=== PATIENT | female | born 1955 | race Hispanic/Latino ===

== ENCOUNTER 2022-02-02 08:49 | Outpatient (CLI) | payer OTHER | END 2022-02-02 08:50 | disposition home or self-care (01) | LOC: BICCT 08:49 | PROVIDERS: ATTEND Family Medicine | DX: S01.81XA Laceration without foreign body of other part of head, initial encounter (principal); S81.011A Laceration without foreign body, right knee, initial encounter; S50.311A Abrasion of right elbow, initial encounter; G44.319 Acute post-traumatic headache, not intractable | CPT/HCPCS: 70450 ==

== ENCOUNTER 2022-02-09 14:53 | Outpatient (CLI) | payer OTHER | END 2022-02-09 14:54 | disposition home or self-care (01) | LOC: BICCT 14:53 | PROVIDERS: ATTEND Family Medicine | DX: S01.81XA Laceration without foreign body of other part of head, initial encounter (principal); S81.011A Laceration without foreign body, right knee, initial encounter; S50.311A Abrasion of right elbow, initial encounter; G44.319 Acute post-traumatic headache, not intractable | CPT/HCPCS: 70450 ==

== ENCOUNTER 2022-02-17 07:53 | Outpatient (CLI) | payer OTHER | END 2022-02-17 07:54 | disposition home or self-care (01) | LOC: SCSMRI 07:53 | PROVIDERS: ATTEND Family Medicine | DX: S81.011D Laceration without foreign body, right knee, subsequent encounter (principal); S01.81XD Laceration without foreign body of other part of head, subsequent encounter; S50.311D Abrasion of right elbow, subsequent encounter; S70.01XD Contusion of right hip, subsequent encounter; G44.319 Acute post-traumatic headache, not intractable; G93.89 Other specified disorders of brain | CPT/HCPCS: 70553; 82565 ==

== ENCOUNTER 2023-09-02 10:16 | Inpatient (IN) | payer MEDICARE ==
[~2023-09-02 10:16] MED LIST: Iopamidol-370 76% 500 ML MDV (1 ML CHARGE) ONE
[2023-09-02] MEDS ORDERED: Etomidate 40 MG (20 mL) VIAL ONE (10:25)
[2023-09-02] MEDS ORDERED: Rocuronium Bromide 10 MG/ML (10ML VIAL) ONE (10:25)
[2023-09-02] MEDS ORDERED: Propofol 1,000 MG/100 ML VIAL IV ONE (10:33)
[2023-09-02 10:54] LABS: ALT (SGPT) Less than 7 U/L (8-55); AST (SGOT) 14 U/L (5-34); Albumin 3.6 g/dL (3.4-4.8); Alkaline Phosphatase 81 U/L (40-110); Anion Gap 17 mmol/L (10-20); BUN (Urea Nitrogen) 21 mg/dL (9.8-20.1); Bilirubin, Total 0.6 mg/dL (0.2-1.2); Calc. Creatinine Clearance 0 mL/min (70-130); Calcium 8.1 mg/dL (7.8-10.44); Carbon Dioxide 14 mmol/L (23-31); Chloride 109 mmol/L (98-107); Estimated GFR 39; Globulin 3.2 g/dL (2.4-3.5); Glucose 335 mg/dL (80-115); Potassium 4.2 mmol/L (3.5-5.1); Protein, Total 6.8 g/dL (5.8-8.1); Sodium 136 mmol/L (136-145)
[2023-09-02 10:57] LABS: Troponin I 0.021 ng/mL (< 0.028)
[2023-09-02 11:00] LABS: Hematocrit 23.4 % (36.0-47.0); Hemoglobin 6.4 g/dL (12.0-16.0); Mean Corpuscular HGB CONC 27.4 g/dL (32.0-36.0); Mean Corpuscular Volume 80.4 fL (78.0-98.0); Mean Platelet Volume 9.9 fL (7.4-10.4); Platelet Count 584 10x3/uL (130-400); RBC Distribution Width 15.3 % (11.5-14.5); Red Blood Cell (RBC) Count 2.91 mill/uL (4.20-5.40)
[2023-09-02 11:01] LABS: Analyzer IN Cardio ER; Base Excess (BEa) -12.8 mEq/L (-2.0 to +3.0); CO2 Tension 42.2 mmHg (35.0-45.0); Calcium, Ionized (arterial) 1.15 mmol/L (1.12-1.30); Carboxyhemoglobin (COHb) 0.3 gm% (0.0-3.0); Hematocrit-ABG 21 % (36.0-47.0); Hemoglobin (Hb) 7.3 g/dL (12.0-16.0); O2 Tension (PaO2), arterial 100.5 mmHg (> 80.0); Potassium - ABG Lab 3.91 mmol/L (3.70-5.30)
[2023-09-02 11:04] LABS: pH, Arterial 7.164 (7.35-7.45)
[2023-09-02 11:05] LABS: Actual Bicarbonate (HCO3a) 14.8 mEq/L (22-28); Puncture Site RRA
[2023-09-02 11:15] LABS: #Monocytes 0.51 10x3/uL (0.11-0.59); #Neutrophils 5.25 10x3/uL (1.40-6.50); INR-International Normal Ratio 1.2; Macrocytosis MODERATE=16-30 cells (100X) (0-5/hpf); Ovalocytes SLIGHT = 2-5 cells (100X) (0-1/hpf); Platelet Adequacy Comment Appears Increased; Prothrombin Time 14.8 sec (12.0-14.7); Total Cell Count 100
[2023-09-02 11:16] LABS: PTT 43.4 sec (22.9-36.1)
[2023-09-02 11:16] LABS: Critical Call Chem-Lactate NUR.ALP1 @1115
[2023-09-02] MEDS ORDERED: Piperacillin/Tazobactam 3.375 GM VIAL ONE (11:26)
[2023-09-02] MEDS ORDERED: Sodium Chloride 0.9% 100 ML ONE (11:26)
[2023-09-02] MEDS ORDERED: Vancomycin 1 GM/200 ML (FROZEN) BAG ONE (11:54)
[2023-09-02] MEDS ORDERED: Ventilator Sedation Protocol 1 EACH FS SCH ×2 (11:55→12:45)
[2023-09-02 12:04] LABS: Lymphocytes 54 % (21-51); Neutrophil 41 % (42-75)
[2023-09-02 12:05] LABS: Eosinophils 1 % (0-10); Monocytes 4 % (0-10)
[2023-09-02] MEDS ORDERED: Ipratropium/Albuterol 3 ML NEB NEB PRN (12:08)
[2023-09-02 12:22] LABS: Lipase 31 U/L (8-78); Magnesium 2.7 mg/dL (1.6-2.6)
[2023-09-02 12:23] LABS: Bilirubin Negative (Negative); Blood, Urine 2+ (Negative); CAUTI Indications for Culture Fever or rigors; Clarity Turbid (Clear); Glucose, Urine (Dipstick) 100 mg/dL (Negative); Ketone, Urine Negative (Negative); Leukocyte Negative Leu/uL (Negative); Nitrite Negative (Negative); Protein, Urine (Dipstick) 300 mg/dL (Neg-Trace); Urobilinogen Normal mg/dL (Less than 2); pH, Urine 5.5 (5.0-9.0)
[2023-09-02] MEDS ORDERED: Acetaminophen 325 MG (10.15 ML) UDCUP PO PRN (12:23)
[2023-09-02 12:30] LABS: Bacteria/HPF 2+ HPF (None Seen)
[2023-09-02] MEDS ORDERED: Lorazepam 2 MG/ML VIAL SLOW IVP PRN (12:30)
[2023-09-02] MEDS ORDERED: Morphine 2 MG/ML VIAL SLOW IVP PRN (12:30)
[2023-09-02] MEDS ORDERED: Fentanyl BOLUS 250 ML IVPB PRN (12:30)
[2023-09-02] MEDS ORDERED: DISCONTINUE PREVIOUS NARCOTIC PAIN MEDICATIONS AND BENZODIAZEPINES FS SCH (12:30)
[2023-09-02] MEDS ORDERED: LORazepam 2 MG/ML SYR.(CARPUJECT) IVP PRN (12:30)
[2023-09-02] MEDS ORDERED: Propofol BOLUS 1,000 MG/100 ML VIAL IV PRN (12:30)
[2023-09-02 12:31] LABS: Urine Culture Reflex No No
[2023-09-02 12:32] LABS: Influenza A by NAA Not Detected (NotDetected); Influenza B by NAA Not Detected (NotDetected); RSV by NAA Not Detected (NotDetected); SARS-CoV-2 NAA Rapid Test Not Detected (NotDetected)
[2023-09-02] MEDS: Insulin Regular 300 UNITS/3 ML VIAL SC PRN (13:10)
[2023-09-02] MEDS: Fentanyl CADD 100 ML IV SCH (13:21)
[2023-09-02] MEDS: Ipratropium/Albuterol 3 ML NEB NEB SCH (13:25)
[2023-09-02] MEDS ORDERED: Cefepime 2 GM in Sodium Chloride 0.9% 100 ML IVPB SCH (14:00)
[2023-09-02 14:08] LABS: Lactic Acid 2.9 mmol/L (0.5-2.2)
[2023-09-02] MEDS: Furosemide 40 MG (4 mL) VIAL SLOW IVP SCH (14:38)
[2023-09-02] MEDS: Albumin 25% 25 GM (100 mL) BOT IVPB SCH (14:39)
[2023-09-02] MEDS: Vancomycin HCl 750 MG in Sodium Chloride 0.9% 250 ML 250 ML IVPB SCH (15:43)
[2023-09-02] MEDS: FLU VACC QS2023(65UP)/MF59C/PF 60 MCG/0.5 ML SYRINGE IM ONE (20:10)
[2023-09-02] MEDS: Propofol 1,000 MG/100 ML VIAL IV PRN (20:27)
[2023-09-02] MEDS ORDERED: Vancomycin 2 GM in Sodium Chloride 0.9% 500 ML IVPB SCH (21:00)
[2023-09-02] MEDS: Famotidine/PF 20 mg/2ml Vial SLOW IVP SCH (21:33)
[2023-09-02] MEDS: GUAIFENESIN SF SOLN 200 MG/10 ML UDCUP PO SCH (21:33)
[2023-09-02] MEDS: Cefepime 1 GM in Sodium Chloride 0.9% 100 ML IVPB SCH (23:36)
[2023-09-03 05:35] LABS: #Basophils Less than 0.03 10x3/uL (0.0-0.2); #Eosinphils Less than 0.03 10x3/uL (0.0-0.7); %Basophils 0.1 % (0.0-1.0); %Monocytes 4.2 % (0.0-10.0); %Neutrophils 89.9 % (42.0-75.0); Hemoglobin 8.4 g/dL (12.0-16.0); Mean Corpuscular HGB CONC 31.1 g/dL (32.0-36.0); Mean Corpuscular Hemoglobin 23.7 pg (27.0-31.0); Mean Corpuscular Volume 76.1 fL (78.0-98.0); Mean Platelet Volume 10.4 fL (7.4-10.4); Platelet Count 438 10x3/uL (130-400); RBC Distribution Width 15.5 % (11.5-14.5); Red Blood Cell (RBC) Count 3.55 mill/uL (4.20-5.40)
[2023-09-03 05:49] LABS: Vancomycin, Random 23.1 ug/mL (See Comment)
[2023-09-03 05:50] LABS: Lactic Acid 1.8 mmol/L (0.5-2.2)
[2023-09-03 06:03] LABS: ALT (SGPT) 10 U/L (8-55); AST (SGOT) 45 U/L (5-34); Albumin 3.6 g/dL (3.4-4.8); Alkaline Phosphatase 68 U/L (40-110); Anion Gap 16 mmol/L (10-20); BUN (Urea Nitrogen) 22 mg/dL (9.8-20.1); Bilirubin, Total 1.3 mg/dL (0.2-1.2); Calc. Creatinine Clearance 44 mL/min (70-130); Calcium 8.8 mg/dL (7.8-10.44); Carbon Dioxide 14 mmol/L (23-31); Cardiac Risk 2.8 (Less than 4.5); Chloride 111 mmol/L (98-107); Cholesterol 123 mg/dl (< 200 Desired); Estimated GFR 39; Globulin 2.7 g/dL (2.4-3.5); Glucose 164 mg/dL (80-115); HDL Cholesterol 44 mg/dL (>60 Neg Risk); LDL Cholesterol, Calculated 58 mg/dL; Protein, Total 6.3 g/dL (5.8-8.1); Sodium 137 mmol/L (136-145); Triglycerides 107 mg/dL (Less than 150)
[2023-09-03] MEDS: Vancomycin 1 GM in Premix 1 BAG IVPB SCH (06:41)
[2023-09-03 07:03] LABS: Actual Bicarbonate (HCO3a) 16.3 mEq/L (22-28); Base Excess (BEa) -6.2 mEq/L (-2.0 to +3.0); Calcium, Ionized (arterial) 1.13 mmol/L (1.12-1.30); Carboxyhemoglobin (COHb) 0.7 gm% (0.0-3.0); Hematocrit-ABG 25 % (36.0-47.0); Hemoglobin (Hb) 8.6 g/dL (12.0-16.0); O2 Tension (PaO2), arterial 137.9 mmHg (> 80.0); Potassium - ABG Lab 3.88 mmol/L (3.70-5.30); pH, Arterial 7.473 (7.35-7.45)
[2023-09-03 07:12] LABS: CO2 Tension 22.8 mmHg (35.0-45.0)
[2023-09-03 07:13] LABS: Puncture Site RBA
[2023-09-04 05:46] LABS: #Basophils Less than 0.03 10x3/uL (0.0-0.2); #Eosinphils Less than 0.03 10x3/uL (0.0-0.7); %Basophils 0.1 % (0.0-1.0); %Lymphocytes 10.4 % (21.0-51.0); %Monocytes 7.6 % (0.0-10.0); %Neutrophils 81.3 % (42.0-75.0); Hemoglobin 7.9 g/dL (12.0-16.0); Mean Corpuscular HGB CONC 31.6 g/dL (32.0-36.0); Mean Corpuscular Hemoglobin 24.6 pg (27.0-31.0); Mean Corpuscular Volume 77.9 fL (78.0-98.0); Platelet Count 394 10x3/uL (130-400); RBC Distribution Width 15.9 % (11.5-14.5); Red Blood Cell (RBC) Count 3.21 mill/uL (4.20-5.40)
[2023-09-04] MEDS ORDERED: Vancomycin HCl 750 MG in Sodium Chloride 0.9% 250 ML 250 ML IVPB SCH (06:00)
[2023-09-04 06:10] LABS: Phosphorus 4.6 mg/dL (2.3-4.7)
[2023-09-04 06:13] LABS: Anion Gap 16 mmol/L (10-20); BUN (Urea Nitrogen) 28 mg/dL (9.8-20.1); Calc. Creatinine Clearance 37 mL/min (70-130); Carbon Dioxide 18 mmol/L (23-31); Chloride 110 mmol/L (98-107); Estimated GFR 31; Glucose 125 mg/dL (80-115); Magnesium 2.4 mg/dL (1.6-2.6); Potassium 3.6 mmol/L (3.5-5.1); Sodium 140 mmol/L (136-145)
[2023-09-04 14:17] LABS: pH, Arterial 7.385 (7.35-7.45)
[2023-09-04 14:18] LABS: Base Excess (BEa) -7.1 mEq/L (-2.0 to +3.0); O2 Tension (PaO2), arterial 103.7 mmHg (> 80.0)
[2023-09-04 14:19] LABS: Calcium, Ionized (arterial) 1.18 mmol/L (1.12-1.30); Carboxyhemoglobin (COHb) 0.7 gm% (0.0-3.0); Hematocrit-ABG 28 % (36.0-47.0); Hemoglobin (Hb) 9.5 g/dL (12.0-16.0); Potassium - ABG Lab 3.64 mmol/L (3.70-5.30); Puncture Site RBA
[2023-09-04] MEDS: cefTRIAXone\\ROCEPHIN 1 GM in Sodium Chloride 0.9% 100 ML IVPB SCH (15:21)
[2023-09-04] MEDS: hydrALAZINE 20 MG/ML VIAL SLOW IVP PRN (15:22)
[2023-09-04] MEDS: Amlodipine 10 MG TAB PO SCH (17:02)
[2023-09-04] MEDS: hydrALAZINE 25 MG TAB PO SCH ×2 (17:02→21:25)
[2023-09-05] MEDS: Ondansetron PF 4 MG/2 ML Vial IVP PRN (01:42)
[2023-09-05 03:29] LABS: #Basophils Less than 0.03 10x3/uL (0.0-0.2); #Eosinphils Less than 0.03 10x3/uL (0.0-0.7); %Basophils 0.1 % (0.0-1.0); %Eosinophils 0.1 % (0.0-10.0); %Lymphocytes 4.6 % (21.0-51.0); %Neutrophils 86.7 % (42.0-75.0); Hematocrit 27.5 % (36.0-47.0); Hemoglobin 8.5 g/dL (12.0-16.0); Mean Corpuscular HGB CONC 30.9 g/dL (32.0-36.0); Mean Corpuscular Hemoglobin 24.4 pg (27.0-31.0); Mean Platelet Volume 9.8 fL (7.4-10.4); Platelet Count 386 10x3/uL (130-400); RBC Distribution Width 16.2 % (11.5-14.5); Red Blood Cell (RBC) Count 3.48 mill/uL (4.20-5.40)
[2023-09-05 09:52] LABS: Anion Gap 16 mmol/L (10-20); BUN (Urea Nitrogen) 34 mg/dL (9.8-20.1); Calc. Creatinine Clearance 37 mL/min (70-130); Calcium 9.2 mg/dL (7.8-10.44); Carbon Dioxide 19 mmol/L (23-31); Chloride 109 mmol/L (98-107); Estimated GFR 32; Glucose 157 mg/dL (80-115); Sodium 140 mmol/L (136-145)
[2023-09-05] MEDS: Citalopram 20 MG TAB PO SCH (10:30)
[2023-09-05] MEDS: Amlodipine 10 MG TAB PO SCH (10:31)
[2023-09-05 15:11] LABS: Iron 14 ug/dL (50-170); Iron Binding Capacity, Total 348 mcg/dL (265-497)
[2023-09-05] MEDS: Famotidine 20 MG TAB PO SCH (20:45)
[2023-09-06 00:34] LABS: Iron Binding Capacity, Total 248 mcg/dL (265-497)
[2023-09-06 02:35] LABS: Iron 8 ug/dL (50-170)
[2023-09-06 05:18] LABS: #Basophils 0.03 10x3/uL (0.0-0.2); %Basophils 0.2 % (0.0-1.0); %Eosinophils 0.3 % (0.0-10.0); %Lymphocytes 8.6 % (21.0-51.0); %Monocytes 7.5 % (0.0-10.0); Hematocrit 28.8 % (36.0-47.0); Hemoglobin 8.8 g/dL (12.0-16.0); Mean Corpuscular HGB CONC 30.6 g/dL (32.0-36.0); Mean Corpuscular Hemoglobin 23.8 pg (27.0-31.0); Mean Corpuscular Volume 77.8 fL (78.0-98.0); Mean Platelet Volume 10.1 fL (7.4-10.4); Platelet Count 366 10x3/uL (130-400); RBC Distribution Width 16.2 % (11.5-14.5)
[2023-09-06 05:42] LABS: Anion Gap 15 mmol/L (10-20); BUN (Urea Nitrogen) 37 mg/dL (9.8-20.1); Calc. Creatinine Clearance 41 mL/min (70-130); Carbon Dioxide 19 mmol/L (23-31); Chloride 107 mmol/L (98-107); Estimated GFR 36; Glucose 138 mg/dL (80-115); Potassium 3.7 mmol/L (3.5-5.1); Sodium 137 mmol/L (136-145)
[2023-09-06] MEDS ORDERED: Ferrous Sulfate 325 MG TAB PO SCH (08:00)
[2023-09-06] MEDS ORDERED: PROPOFOL 20 ML ONE ×2 (08:01→08:49)
[2023-09-06] MEDS ORDERED: fentaNYL 50 mcg/mL 1 mL Vial ONE (08:01)
[2023-09-06] MEDS ORDERED: Lidocaine 2% PF 5 ML VIAL ONE (08:01)
[2023-09-06] MEDS ORDERED: hydrALAZINE 20 MG/ML VIAL ONE (09:23)
[2023-09-06] MEDS: Furosemide 40 MG TAB PO SCH (10:21)
[2023-09-06] MEDS: GoLYTELY 4,000 ml Bottle PO SCH (20:05)
[2023-09-07 04:19] LABS: #Basophils 0.03 10x3/uL (0.0-0.2); %Basophils 0.2 % (0.0-1.0); %Eosinophils 0.8 % (0.0-10.0); %Lymphocytes 10.5 % (21.0-51.0); %Monocytes 10.7 % (0.0-10.0); %Neutrophils 77.2 % (42.0-75.0); Hematocrit 29.2 % (36.0-47.0); Hemoglobin 9.1 g/dL (12.0-16.0); Mean Corpuscular HGB CONC 31.2 g/dL (32.0-36.0); Mean Corpuscular Hemoglobin 24.2 pg (27.0-31.0); Mean Corpuscular Volume 77.7 fL (78.0-98.0); Platelet Count 371 10x3/uL (130-400); RBC Distribution Width 15.9 % (11.5-14.5); Red Blood Cell (RBC) Count 3.76 mill/uL (4.20-5.40)
[2023-09-07 04:38] LABS: Anion Gap 18 mmol/L (10-20); BUN (Urea Nitrogen) 36 mg/dL (9.8-20.1); Calc. Creatinine Clearance 47 mL/min (70-130); Calcium 9.2 mg/dL (7.8-10.44); Carbon Dioxide 19 mmol/L (23-31); Chloride 105 mmol/L (98-107); Estimated GFR 43; Glucose 100 mg/dL (80-115); Potassium 3.8 mmol/L (3.5-5.1); Sodium 138 mmol/L (136-145)
[2023-09-07] MEDS ORDERED: Midazolam HCl 2 mg/2 ml Vial ONE (08:46)
[2023-09-07] MEDS ORDERED: PROPOFOL 40 ML ONE (08:46)
[2023-09-08] MEDS: NIFEdipine XL 60 MG ER.TAB PO SCH (09:09)
[2023-09-08 11:16] LABS: #Basophils 0.03 10x3/uL (0.0-0.2); %Basophils 0.3 % (0.0-1.0); %Eosinophils 2.2 % (0.0-10.0); %Lymphocytes 13.4 % (21.0-51.0); %Monocytes 11.5 % (0.0-10.0); %Neutrophils 71.8 % (42.0-75.0); Hematocrit 26.2 % (36.0-47.0); Hemoglobin 8.4 g/dL (12.0-16.0); Mean Corpuscular HGB CONC 32.1 g/dL (32.0-36.0); Mean Corpuscular Hemoglobin 24.5 pg (27.0-31.0); Mean Corpuscular Volume 76.4 fL (78.0-98.0); Mean Platelet Volume 9.7 fL (7.4-10.4); Platelet Count 332 10x3/uL (130-400); Red Blood Cell (RBC) Count 3.43 mill/uL (4.20-5.40)
[2023-09-08 11:34] LABS: Anion Gap 13 mmol/L (10-20); BUN (Urea Nitrogen) 24 mg/dL (9.8-20.1); Calc. Creatinine Clearance 60 mL/min (70-130); Calcium 8.6 mg/dL (7.8-10.44); Carbon Dioxide 22 mmol/L (23-31); Chloride 104 mmol/L (98-107); Estimated GFR 62; Glucose 111 mg/dL (80-115); Sodium 136 mmol/L (136-145)
[2023-09-08] MEDS: Potassium Chloride 20 MEQ TAB PO SCH (14:25)
[2023-09-09 06:48] LABS: #Basophils 0.04 10x3/uL (0.0-0.2); %Basophils 0.4 % (0.0-1.0); %Eosinophils 2.3 % (0.0-10.0); %Lymphocytes 14.3 % (21.0-51.0); %Monocytes 10.9 % (0.0-10.0); %Neutrophils 71.6 % (42.0-75.0); Hematocrit 26.7 % (36.0-47.0); Hemoglobin 8.3 g/dL (12.0-16.0); Mean Corpuscular HGB CONC 31.1 g/dL (32.0-36.0); Mean Corpuscular Hemoglobin 24.3 pg (27.0-31.0); Mean Corpuscular Volume 78.1 fL (78.0-98.0); Mean Platelet Volume 10.6 fL (7.4-10.4); Platelet Count 335 10x3/uL (130-400); Red Blood Cell (RBC) Count 3.42 mill/uL (4.20-5.40)
[2023-09-09 08:37] LABS: Anion Gap 13 mmol/L (10-20); BUN (Urea Nitrogen) 25 mg/dL (9.8-20.1); Calc. Creatinine Clearance 45 mL/min (70-130); Calcium 8.7 mg/dL (7.8-10.44); Carbon Dioxide 20 mmol/L (23-31); Chloride 104 mmol/L (98-107); Estimated GFR 45; Glucose 96 mg/dL (80-115); Potassium 3.6 mmol/L (3.5-5.1); Sodium 133 mmol/L (136-145)
[2023-09-09] MEDS: NIFEdipine XL 60 MG ER.TAB PO SCH (08:44)
[2023-09-09 09:32] LABS: Anion Gap 16 mmol/L (10-20); BUN (Urea Nitrogen) 26 mg/dL (9.8-20.1); Calc. Creatinine Clearance 42 mL/min (70-130); Carbon Dioxide 20 mmol/L (23-31); Chloride 103 mmol/L (98-107); Estimated GFR 40; Glucose 99 mg/dL (80-115); Potassium 3.6 mmol/L (3.5-5.1); Sodium 135 mmol/L (136-145)
[2023-09-10 04:13] LABS: #Basophils 0.05 10x3/uL (0.0-0.2); %Basophils 0.6 % (0.0-1.0); %Lymphocytes 14.6 % (21.0-51.0); %Monocytes 11.1 % (0.0-10.0); %Neutrophils 69.9 % (42.0-75.0); Hematocrit 27.1 % (36.0-47.0); Hemoglobin 8.3 g/dL (12.0-16.0); Mean Corpuscular HGB CONC 30.6 g/dL (32.0-36.0); Mean Corpuscular Hemoglobin 23.9 pg (27.0-31.0); Mean Corpuscular Volume 77.9 fL (78.0-98.0); Mean Platelet Volume 10.8 fL (7.4-10.4); Platelet Count 329 10x3/uL (130-400); RBC Distribution Width 16.1 % (11.5-14.5); Red Blood Cell (RBC) Count 3.48 mill/uL (4.20-5.40)
[2023-09-10 04:37] LABS: Anion Gap 15 mmol/L (10-20); BUN (Urea Nitrogen) 25 mg/dL (9.8-20.1); Calc. Creatinine Clearance 43 mL/min (70-130); Calcium 8.8 mg/dL (7.8-10.44); Carbon Dioxide 19 mmol/L (23-31); Chloride 104 mmol/L (98-107); Estimated GFR 42; Glucose 123 mg/dL (80-115); Potassium 3.5 mmol/L (3.5-5.1); Sodium 134 mmol/L (136-145)
[2023-09-10 13:51] VITALS: BMI 30.3
[2023-09-10 16:22] VITALS: BP 139/63; TEMP 99
[2023-09-11] MEDS ORDERED: NIFEdipine XL 90 MG ER.TAB PO SCH (09:00)
== END 2023-09-10 16:33 | disposition home or self-care (01) | DRG 871 ==
LOC: ERS 10:16 → CCU 11:06 → 2NO 09-05 20:18 → MSONC 09-09 16:29
PROVIDERS: ADMIT Family Medicine; ATTEND Emergency Medicine
PROC: 0T9B70Z Drainage of Bladder with Drainage Device, Via Natural or Artificial Opening (ICD-10-PCS; principal; 2023-09-02)
PROC: 02HV33Z Insertion of Infusion Device into Superior Vena Cava, Percutaneous Approach (ICD-10-PCS; 2023-09-02)
PROC: 0DH67UZ Insertion of Feeding Device into Stomach, Via Natural or Artificial Opening (ICD-10-PCS; 2023-09-02)
PROC: 0BH17EZ Insertion of Endotracheal Airway into Trachea, Via Natural or Artificial Opening (ICD-10-PCS; 2023-09-02)
PROC: 30233N1 Transfusion of Nonautologous Red Blood Cells into Peripheral Vein, Percutaneous Approach (ICD-10-PCS; 2023-09-02)
PROC: 4A133R1 Monitoring of Arterial Saturation, Peripheral, Percutaneous Approach (ICD-10-PCS; 2023-09-02)
PROC: 3E04329 Introduction of Other Anti-infective into Central Vein, Percutaneous Approach (ICD-10-PCS; 2023-09-02)
PROC: 30233J1 Transfusion of Nonautologous Serum Albumin into Peripheral Vein, Percutaneous Approach (ICD-10-PCS; 2023-09-02)
PROC: 5A1945Z Respiratory Ventilation, 24-96 Consecutive Hours (ICD-10-PCS; 2023-09-02)
PROC: 0DB68ZX Excision of Stomach, Via Natural or Artificial Opening Endoscopic, Diagnostic (ICD-10-PCS; 2023-09-06)
PROC: 0DJD8ZZ Inspection of Lower Intestinal Tract, Via Natural or Artificial Opening Endoscopic (ICD-10-PCS; 2023-09-07)
DX: A41.9 Sepsis, unspecified organism (principal); G93.41 Metabolic encephalopathy; J18.9 Pneumonia, unspecified organism; J96.01 Acute respiratory failure with hypoxia; I50.33 Acute on chronic diastolic (congestive) heart failure; N17.9 Acute kidney failure, unspecified; I13.0 Hypertensive heart and chronic kidney disease with heart failure and stage 1 through stage 4 chronic kidney disease, or unspecified chronic kidney disease; N39.0 Urinary tract infection, site not specified; R65.20 Severe sepsis without septic shock; E78.00 Pure hypercholesterolemia, unspecified; F41.9 Anxiety disorder, unspecified; F32.A Depression, unspecified; Z79.899 Other long term (current) drug therapy; Z79.4 Long term (current) use of insulin; N18.30 Chronic kidney disease, stage 3 unspecified; E11.22 Type 2 diabetes mellitus with diabetic chronic kidney disease; I27.20 Pulmonary hypertension, unspecified; Z98.49 Cataract extraction status, unspecified eye; D50.9 Iron deficiency anemia, unspecified; D63.1 Anemia in chronic kidney disease; K57.90 Diverticulosis of intestine, part unspecified, without perforation or abscess without bleeding; K64.8 Other hemorrhoids
CPT/HCPCS: 0241U; 31500; 36415; 36416; 36430; 36556; 36600; 43753; 51702; 70450; 71045; 71275; 74174; 80048; 80053; 80061; 80202; 81001; 82728; 82805; 83036; 83540; 83550; 83605; 83690; 83735; 83880; 84100; 84145; 84443; 84484; 85025; 85610; 85730; 86850; 86900; 86901; 87040; 87077; 87081; 87086; 88305; 88342; 93005; 93306; 94002; 94003; 94640; 96365; 99292; J0360; J0692; J0696; J1815; J1940; J2001; J2060; J2250; J2405; J2543; J2704; J3010; J3370; J3370-JW; J3490; J7050; J7620; P9016; P9047; Q9967; S0028